=== PATIENT | male | born 1970 | race Caucasian/White ===

== ENCOUNTER 2021-02-13 03:29 | Emergency (ER) | payer OTHER ==
[~2021-02-13 03:29] MED LIST: BACLOFEN 10MG T10 MG PO; NORCO 5-325 TA1 EACH PO; PREDNISONE 20MG20 MG PO; VOLTAREN **OUT75 MG PO
[2021-02-13 04:48] LABS: BASOPHIL 0.3 % (0-2); EOSINOPHIL 0 % (0-5); HCT 49.1 % (42.0-52.0); HGB 16.4 g/dl (13.2-18.0); LYMPHOCYTE 18.4 % (15-48); MCHC 33.4 g/dL (32.0-36.0); MCV 86.7 fL (78.0-100.0); MONOCYTE 10.2 % (0-12); MPV 9.5 fL (6.0-9.5); NEUTROPHIL 70.8 % (41-80); NRBC 0; PLT 147 K/uL (150-400); RBC 5.66 M/uL (4.70-6.00); RDW 12.5 % (11.5-14.0); WBC 3.4 K/uL (4.0-10.5)
[2021-02-13 05:04] LABS: ALBUMIN 3.9 g/dL (3.4-5.0); BILIRUBIN - TOTAL 0.7 mg/dL (0.2-1.0); BUN/CREAT RATIO (CALC) 14.2 RATIO; CREATININE 1.27 mg/dL (0.67-1.17); GLOBULIN (CALCULATION) 4.4 g/dL; POTASSIUM 3.8 mmol/L (3.5-5.1); TOTAL PROTEIN 8.3 g/dL (6.4-8.2)
[2021-02-13 05:07] LABS: LACTIC ACID 1.5 mmol/L (0.4-1.9)
[2021-02-13] MEDS ORDERED: VENTOLIN HFA IN18 GM INH (07:32)
[2021-02-13] MEDS ORDERED: PULMICORT FLE180 MCG INH (07:32)
[2021-02-13] MEDS ORDERED: TESSALON PERLE100 MG PO (07:32)
[2021-02-13] MEDS ORDERED: FLOVENT HFA12 GM INH (07:44)
== END 2021-02-13 08:00 | disposition home or self-care (01) ==
LOC: FER 03:29
PROVIDERS: Emergency Medicine Emergency Medical Services
DX: U07.1 COVID-19 (principal); I10 Essential (primary) hypertension; Z23 Encounter for immunization; Z79.899 Other long term (current) drug therapy
CPT/HCPCS: 36415; 36600; 71045; 80053; 82803; 83605; 83880; 85025; 85379; 87040; 93005; 94640; 94664; J1885; J2405; J7030; J7120; M0243; Q0244; U0002